=== PATIENT | female | born 1985 | race Caucasian/White ===

== ENCOUNTER 2016-09-06 00:28 | Emergency (ER) | payer BC, MEDICAID ==
[2016-09-06 00:40] VITALS: BP 121/68
--- NOTE | 2016-09-06 14:38 | EKG REPORT ---
SEVERITY:- NORMAL ECG - SINUS RHYTHM : Confirmed by: Aydee Gordon 06-Sep-2016 14:38:09
== END 2016-09-06 01:25 | disposition left against medical advice (07) ==
LOC: ER 00:28
DX: Z53.21 Procedure and treatment not carried out due to patient leaving prior to being seen by health care provider (principal)
CPT/HCPCS: 93005; 93010